=== PATIENT | female | born 1980 | race Caucasian/White ===

== ENCOUNTER → 2016-11-08 | Outpatient (CLI) | payer BC ==
[2016-11-08 09:19] LABS: Basophils # (auto) 0 uL; Basophils % (auto) 0.6 % (0.0-2.0); Eosinophils # (auto) 0.1 uL; Eosinophils % (auto) 2.1 % (0.0-7.0); Hematocrit 44.2 % (36.0-46.0); Hemoglobin 15.6 g/dL (12.2-16.2); Lymphocytes # (auto) 2.3 uL; Lymphocytes % (auto) 43.9 % (10.0-50.0); Mean Corpuscular Hemoglobin 31.4 pg (28.0-32.0); Mean Corpuscular Hgb Conc. 35.3 g/dL (32.0-36.0); Mean Corpuscular Volume 88.9 fL (80.0-100.0); Mean Platelet Volume 7.5 fL (7.4-10.4); Monocytes # (auto) 0.7 uL; Monocytes % (auto) 12.9 % (0.0-12.0); Neutrophils # (auto) 2.1 uL; Neutrophils % (auto) 40.5 % (37.0-80.0); Platelet Count (auto) 307 10^3/uL (140-450); Red Cell Distribution Width 12.5 % (11.6-16.0); White Blood Cell 5.3 10^3/uL (4.4-10.8)
[2016-11-08 09:26] LABS: Urine Bilirubin Negative (Negative); Urine Blood Negative /uL (Negative); Urine Color Yellow (Yellow); Urine Glucose Normal (Normal); Urine Ketone 1+ (Negative); Urine Nitrite Negative (Negative); Urine RBC <1 /hpf (0 - 4); Urine Squamous Epithelial Cell FEW /hpf (<5); Urine Urobilinogen Normal (Negative); Urine pH 6.5 (5.0-8.0)
[2016-11-08 09:45] LABS: Albumin 3.6 g/dL (3.4-5.0); BUN/Creatinine Ratio 9.2; Bilirubin, Total 0.7 mg/dL (0.2-1.0); Calcium 8.8 mg/dL (8.5-10.1); Potassium 3.6 mmol/L (3.5-5.1); Total Protein 7.4 g/dL (6.4-8.2)
== END | disposition home or self-care (01) ==
LOC: LAB 08:29
PROVIDERS: ATTEND Physician Assistant
DX: F41.9 Anxiety disorder, unspecified (principal); E55.9 Vitamin D deficiency, unspecified; J45.909 Unspecified asthma, uncomplicated; Z00.00 Encounter for general adult medical examination without abnormal findings
CPT/HCPCS: 36415; 80053; 80061; 81001; 82306; 82607; 83036; 84443; 85025

== ENCOUNTER 2018-07-08 12:04 | Emergency (ER) | payer BC ==
[~2018-07-08] VITALS: Ht 185.4 cm; Wt 97.5 kg
[2018-07-08 12:11] VITALS: BP 121/87
[2018-07-08 12:40] LABS: Urine Bacteria FEW /hpf (None Seen); Urine Blood Negative /uL (Negative); Urine Specific Gravity 1.012 (1.001-1.035); Urine WBC 5 /hpf (0 - 5)
[2018-07-08] MEDS ORDERED: KETOROLAC TROMETH 60MG/2ML VIAL IM ONE (13:15)
[2018-07-08] MEDS ORDERED: cefTRIAXone SOD 1,000 MG VL IM ONE (13:15)
[2018-07-08 13:44] LABS: Basophils # (auto) 0.1 uL; Basophils % (auto) 0.6 % (0.0-2.0); Eosinophils # (auto) 0 uL; Eosinophils % (auto) 0.4 % (0.0-7.0); Hematocrit 45.8 % (36.0-46.0); Hemoglobin 15.6 g/dL (12.2-16.2); Lymphocytes % (auto) 31.3 % (10.0-50.0); Mean Corpuscular Hemoglobin 31.3 pg (28.0-32.0); Monocytes # (auto) 0.7 uL; Neutrophils # (auto) 5.8 uL; Neutrophils % (auto) 60.7 % (37.0-80.0); Nucleated Red Blood Cells % 0.1 %; Platelet Count (auto) 319 10^3/uL (140-450); Red Blood Cells 4.97 10^6/uL (4.0-5.20); Red Cell Distribution Width 12.6 % (11.8-14.3); White Blood Cell 9.5 10^3/uL (4.4-10.8)
[2018-07-08 14:04] LABS: Albumin 3.8 g/dL (3.4-5.0); BUN/Creatinine Ratio 12.2; Calcium 8.6 mg/dL (8.5-10.1); Potassium 3.6 mmol/L (3.5-5.1)
[2018-07-08 14:06] LABS: Bilirubin, Total 0.5 mg/dL (0.2-1.0); Total Protein 7.6 g/dL (6.4-8.2)
[2018-07-08] MEDS ORDERED: IOHEXOL 300 MG/ML 100ML BOTTLE IJ ONE (14:33)
== END 2018-07-08 15:50 | disposition home or self-care (01) ==
LOC: ER 12:04
DX: N39.0 Urinary tract infection, site not specified (principal); N83.201 Unspecified ovarian cyst, right side; D35.01 Benign neoplasm of right adrenal gland; Z88.0 Allergy status to penicillin; Z88.1 Allergy status to other antibiotic agents; Z88.2 Allergy status to sulfonamides
CPT/HCPCS: 36415; 74176; 74177; 80053; 81001; 81025; 84443; 85025; 96372; 99284; J0696; J1885; J7030; Q9967

== ENCOUNTER 2019-09-12 15:22 | Inpatient (IN) | payer BC ==
[~2019-09-12] VITALS: Ht 185.4 cm; Wt 88.6 kg
[2019-09-12] MEDS ORDERED: SODIUM CHLORIDE 0.9% 1,000 ML IV ONE (15:47)
[2019-09-12 16:15] LABS: Basophils # (auto) 0.1 uL; Basophils % (auto) 1.1 % (0.0-2.0); Eosinophils # (auto) 0 uL; Eosinophils % (auto) 0.4 % (0.0-7.0); Hemoglobin 14.6 g/dL (12.2-16.2); Lymphocytes # (auto) 2.5 uL; Lymphocytes % (auto) 29.2 % (10.0-50.0); Mean Corpuscular Hemoglobin 30.7 pg (28.0-32.0); Mean Corpuscular Volume 90.4 fL (80.0-100.0); Monocytes # (auto) 0.6 uL; Monocytes % (auto) 7.6 % (0.0-12.0); Neutrophils # (auto) 5.3 uL; Neutrophils % (auto) 61.7 % (37.0-80.0); Platelet Count (auto) 279 10^3/uL (140-450); Red Blood Cells 4.75 10^6/uL (4.0-5.20); Red Cell Distribution Width 12.6 % (11.8-14.3); White Blood Cell 8.5 10^3/uL (4.4-10.8)
[2019-09-12 16:34] LABS: Albumin 3.4 g/dL (3.4-5.0); Calcium 8.4 mg/dL (8.5-10.1); Magnesium 2.1 mg/dL (1.6-2.6); Potassium 3.6 mmol/L (3.5-5.1)
[2019-09-12 16:37] LABS: Bilirubin, Total 0.4 mg/dL (0.2-1.0); Total Protein 7.3 g/dL (6.4-8.2)
[2019-09-12 16:44] LABS: Beta HCG, Quantitative < 1 mlU/mL (1-3); Thyroid Stimulating Hormone 0.82 uIU/mL (0.358-3.74)
[2019-09-12] MEDS ORDERED: KETOROLAC TROMETH 15 mg/ml 1ML VL IV ONE (16:45)
[2019-09-12 17:08] LABS: Urine Bacteria FEW /hpf (None Seen); Urine Blood Negative /uL (Negative); Urine WBC 1 /hpf (0 - 5)
[2019-09-12 17:13] LABS: Alcohol, Urine < 3.0 mg/dL (0-5); Amphetamine Screen, Urine NEGATIVE (NEGATIVE); Barbiturate Scree,Urine NEGATIVE (NEGATIVE); Benzodiazephine Screen, Urine NEGATIVE (NEGATIVE); Cannabinoid Screen, Urine NEGATIVE (NEGATIVE); Cocaine Screen, Urine NEGATIVE (NEGATIVE); Opiate Scree,Urine NEGATIVE (NEGATIVE); Phencyclidine Screen, Urine NEGATIVE (NEGATIVE)
[2019-09-12] MEDS ORDERED: MORPHINE SULFATE 4 MG/ML SYR/VIAL IV ONE ×2 (20:30)
[2019-09-12] MEDS ORDERED: ONDANSETRON HCL 4 MG/2 ML VIAL IV ONE ×2 (20:30)
[2019-09-12] MEDS ORDERED: HYDROcodone-ACET 5/325MG TAB PO PRN (21:15)
[2019-09-12] MEDS ORDERED: ONDANSETRON HCL 4 MG/2 ML VIAL IV PRN (21:15)
[2019-09-12] MEDS ORDERED: MORPHINE SULFATE 4 MG/ML SYR/VIAL IV PRN (21:15)
[2019-09-12] MEDS ORDERED: DOCUSATE SOD 100 MG CAP PO PRN (21:15)
[2019-09-12] MEDS ORDERED: ACETAMINOPHEN 325 MG TAB PO PRN (21:15)
[2019-09-12] MEDS ORDERED: cefTRIAXone 1GM/50ML D5W 50 ML IV SCH (21:30)
[2019-09-12] MEDS ORDERED: LORazepam 2MG/ML-1ML VIAL IV PRN (21:30)
[2019-09-12 22:35] LABS: Cholesterol 178 mg/dL (< 200); HDL Cholesterol 52 mg/dL (40-59); LDL Cholesterol 114 mg/dL (< 100); Triglycerides 36 mg/dL (< 150)
--- NOTE | 2019-09-12 23:25 | NUR ---
Telemetry admit from ER KRISTASEVENNANDINI admitted to Telemetry unit. Patient oriented to Lorraine Schaeffer,RN primary RN, unit, room, bed, and unit policies regarding patient care and visiting hours. Patient now on continuous telemetry monitoring, tele box #2 and telemetry reading on arrival to unit is NSR. Family at bedside. AAOX4, ambulatory and on room air. No acute S/S of distress or SOB noted. Patient weighed by bedscale and encouraged to call if they need something. All questions and concerns addressed, patient verbalized understanding. Bed in lowest locked position, side rails up x2, call light within reach. Will continue to monitor every hour and as needed.
[2019-09-12 23:47] VITALS: BP 139/83
[2019-09-13] MEDS ORDERED: ALPR0.5T PO (00:06)
--- NOTE | 2019-09-13 00:15 | NUR ---
JOSSE TELECOMMUNICATIONS LINE MECHANIC NOTIFIED THIS RN THAT PATIENT HAS THE WRONG TELE MONITOR. TO BE SENT CORRECT MONITOR.
--- NOTE | 2019-09-13 00:20 | NUR ---
NEW TELE MONITOR NUMBER TWO RECEIVED. SWITCHED AND SENT OTHER TELE MONITOR NUMBER FORTY-FOUR BACK DOWN TO THE PLUMBER MAINTENANCE ROOM. DAVID PLUMBER MAINTENANCE NOTIFIED. PATIENT ON CONTINUOUS TELE MONITORING.
[2019-09-13 01:29] VITALS: BP 139/83
[2019-09-13 05:00] VITALS: BP 128/79
[2019-09-13 06:52] LABS: Basophils # (auto) 0 uL; Basophils % (auto) 0.4 % (0.0-2.0); Eosinophils # (auto) 0 uL; Hematocrit 41.2 % (36.0-46.0); Lymphocytes # (auto) 2.2 uL; Lymphocytes % (auto) 23.6 % (10.0-50.0); Mean Corpuscular Hemoglobin 31.2 pg (28.0-32.0); Mean Corpuscular Hgb Conc. 34.1 g/dL (32.0-36.0); Mean Corpuscular Volume 91.6 fL (80.0-100.0); Monocytes # (auto) 0.6 uL; Neutrophils # (auto) 6.3 uL; Nucleated Red Blood Cells % 0.1 %; Platelet Count (auto) 285 10^3/uL (140-450); Red Blood Cells 4.49 10^6/uL (4.0-5.20); Red Cell Distribution Width 12.6 % (11.8-14.3); White Blood Cell 9.2 10^3/uL (4.4-10.8)
[2019-09-13 07:07] LABS: Potassium 4.2 mmol/L (3.5-5.1)
[2019-09-13 07:16] LABS: BUN/Creatinine Ratio 16.2; Calcium 8.6 mg/dL (8.5-10.1)
[2019-09-13 08:42] VITALS: BP 120/85
[2019-09-13] MEDS ORDERED: ASPirin 81 mg TAB PO SCH (10:00)
--- NOTE | 2019-09-13 11:40 | NUR ---
EEG COMPLETED AT BEDSIDE.
[2019-09-13 13:00] VITALS: BP 118/81
--- NOTE | 2019-09-13 19:20 | NUR ---
Opening Shift Note Assumed care of patient, awake and alert x4. No S/S of distress/SOB or pain. Call light is within reach, side rails up x2, bed is in lowest position. Instructed on POC and to call for assist PRN, will continue to monitor for changes Q1hr and PRN.
[2019-09-13 22:00] VITALS: BP 131/74
[2019-09-14 05:00] VITALS: BP 120/81
--- NOTE | 2019-09-14 07:30 | NUR ---
Opening Note Assumed pt care from [facility] nurse. Pt is a/ox4 with no s/s of distress or SOB. Pt is currently sitting upright in bed with no complaints at this time. Pt's senior materials analyst to upper extremities are strong bilaterally. Pt states she does not have a HOLLIS or any feelings of numbness. Discussed POC with pt; pt verbalized understanding. Safety measures maintained with call light within reach, bed in lowest position and side rails up. Will continue to monitor for changes q1hr and prn.
[2019-09-14 09:00] VITALS: BP 140/83
--- NOTE | 2019-09-14 10:19 | NUR ---
Dr Cleary at Bedside MD to see pt. Pt is to be d/c'ed home today. Will implement and follow through.
[2019-09-14 10:44] VITALS: BP 140/83
--- NOTE | 2019-09-14 11:01 | NUR ---
IV and Tele Box Removed IV to pt's R hand d/c'ed. Catheter was removed fully intact. Site is asymptomatic.Pressure was applied to site for 3 minutes with gauze and then wrapped in coban. Pt instructed to keep dressing on for 390 minutes; pt verbalized understanding. Tele box 2 removed and sent back to ICU. Monitor techs made aware.
--- NOTE | 2019-09-14 11:07 | NUR ---
Pt D/C'ed Off Unit Pt ambulated off unit accompanied by her . Pt has all belongings, education material, prescriptions, and follow up appointment information and all questions were answered. Pt is a/oc4 with no s/s of distress upon d/c.
== END 2019-09-14 11:08 | disposition home or self-care (01) | DRG 92 ==
LOC: ER 15:22 → EEVIPCON 15:22 → TELE 15:23 → TELE-EAST 23:09
PROVIDERS: ADMIT Hospitalist; ATTEND Internal Medicine
DX: R29.810 Facial weakness (principal); N39.0 Urinary tract infection, site not specified; F17.200 Nicotine dependence, unspecified, uncomplicated; J01.90 Acute sinusitis, unspecified; F41.9 Anxiety disorder, unspecified; G43.109 Migraine with aura, not intractable, without status migrainosus; Z79.82 Long term (current) use of aspirin; Z79.899 Other long term (current) drug therapy; Z83.3 Family history of diabetes mellitus; Z88.0 Allergy status to penicillin; Z88.1 Allergy status to other antibiotic agents; Z88.8 Allergy status to other drugs, medicaments and biological substances; Z88.2 Allergy status to sulfonamides
CPT/HCPCS: 36415; 70450; 70551; 71046; 80048; 80053; 80061; 80307; 81001; 83735; 84443; 84702; 85025; 93005; 93306; 93886; 95819; G0378; J0696; J2405

== ENCOUNTER → 2019-11-25 | Outpatient (CLI) | payer BC ==
[~2019-11-25] MED LIST: ALPR0.5T PO
== END | disposition home or self-care (01) ==
LOC: LAB 09:04
PROVIDERS: ATTEND Physician Assistant
DX: Z02.0 Encounter for examination for admission to educational institution (principal)
CPT/HCPCS: 36415; 86706; 86735; 86762; 86765; 86787

== ENCOUNTER → 2020-08-07 | Outpatient (CLI) | payer OTHER | END | disposition home or self-care (01) | LOC: LAB 16:46 | PROVIDERS: ATTEND Nurse Practitioner Family | DX: U07.1 COVID-19 (principal) | CPT/HCPCS: C9803; U0003 ==